=== PATIENT | female | born 1980 | race Caucasian/White ===

== ENCOUNTER → 2019-09-08 | Outpatient (CLI) | payer BC ==
[~2019-09-08] MED LIST: DIATRIZOATE MEGL/DIATRIZOA SOD 30 ML BTL PO ONE; IOPAMIDOL 370 MG/ML 200 ML INFUS..BTL INJ ONE
[2019-09-08 10:51] LABS: BLOOD UREA NITROGEN 10 mg/dL (7-26); BUN/CREATININE RATIO 15 (6-25); CREATININE, SERUM 0.66 mg/dL (0.57-1.11); EST GLOMERULAR FILTRATION RATE > 60 ML/MIN (60-)
--- NOTE | 2019-09-08 11:53 | Diagnostic Imaging Report ---
INDICATION: Rectal pain. COMPARISON: None. TECHNIQUE: CT of the Abdomen and Pelvis WITH intravenous contrast. Enteric contrast was used. The exam was performed according to our department dose-optimization protocol, which includes automated exposure control, adjustments of mA and kV according to patient size. Iterative reconstructions are also sometimes employed. FINDINGS: There is low-density wall thickening around the anus, suspect hemorrhoids. No perianal or perirectal fistula is demonstrated. The rectum itself appears normal and there is no stranding of the perirectal fat. Low-attenuation of the liver representing steatosis. Pancreas, spleen, adrenal glands and kidneys are normal. Gallbladder is unremarkable and no biliary ductal dilation is demonstrated. Bladder is minimally distended; no gross bladder abnormality. Uterus and ovaries are unremarkable. Osseous structures and lower thorax unremarkable. IMPRESSION: Low-density wall thickening around the anus, suspect hemorrhoids. Recommend correlation with physical exam and anoscopy. Hepatic steatosis. Signed by: Elmer Vu MD on 09/08/2019 11:50 AM
== END ==
LOC: CT 08:20
PROVIDERS: ATTEND Family Medicine
DX: K62.89 Other specified diseases of anus and rectum (principal)
CPT/HCPCS: 36415; 74177; 81025; 82565; 84520; Q9967